=== PATIENT | female | born 1955 | race Caucasian/White ===

== ENCOUNTER 2017-01-03 14:53 | Emergency (ER) | payer MEDICAID, MEDICARE ==
[~2017-01-03] VITALS: Ht 170.2 cm; Wt 98.9 kg
[~2017-01-03 14:53] MED LIST: AGM875T PO; ALDACTONE25 MG PO; AMOX500C2 PO; ASP325T PO; ASP81CT PO; ASP81TEC PO; ASPI-983 PO; ASPI-999 PO; ATR20T PO; ATRV10T PO; BENZ100C18 PO; BSC10SU PR; CARV12.53 PO; CARV3.12 PO; CARV3.122 PO; CARV6.25 PO; CEFU500T PO; CLPD75T PO; CPR500T PO; CRV6.25T PO; CYCL10TA9 PO; DIPH25TA65 PO; DIPH50CA33 PO; DOXY100C42 PO; DPAS20025 PO; DULO20CA PO; DULO60CA58 PO; DULO60CA6 PO; ESCT10T PO; EXEN2PEN SQ; FERR-74 PO; FURO20TA4 PO; FURO40TA4 PO; GBPN300C PO; GLUC1VIA IJ; GLUCOSE GEL 40% PO; HYDR-2856 PO; HYDR-2997 PO; HYDR-34 PO; HYDR-3816 PO; IBP800T PO; INSU100I14 SQ; INSU100I16 SQ; INSU100I23 SQ; INSU100I29 SQ; INSU100V5 SQ; INSU100V6 SQ; Insulin Human Lispro SC; KCL20TCR PO; KRIL1CAP10 PO; L.AC1CAP6 PO; LD5O35 TP; LEVO750T6 PO; LIRA0.6P SQ; LISI10TA2 PO; LISI2.5T PO; LISI2.5T56 PO; LISI5TAB PO; LOPE-134 PO; LORA0.5T PO; MAGN-47 PO; MAGN800O PO; MO133EN RC; MORP-33 PO; MUPI22OI2 TP; NITR-33 PO; NITR-65 PO; NS10S IV; NST15O TOP; NST15PW TOP; NSTR15O TP; OMEP40CA36 PO; ONDA2VIA IV; OXB5T PO; OXYB10TA PO; OXYB5TAB PO; OXYB5TAB9 PO; PANT40SU PO; PANT40VI3 IV; PENT100C5 PO; PHEN200T27 PO; POTA20TA15 PO; PRAV40TA PO; PREG150C PO; PREG225C PO; PREG75CA PO; Pregabalin PO; QUIN5TAB PO; SCR1T1 PO; SENN1TAB76 PO; SODI15OR PO; TRAM50TA2 PO; TRM50T PO; levimer
--- OUTSIDE RECORDS SUMMARY | 2017-01-03 14:59 | XMS REPORT ---
Author Author WESLY NORMAN Organization [facility] Address [address] [place] [address] Care Team Providers Care Link Assembler Name Role Phone WESLY NORMAN Unavailable PROBLEMS Type Condition ICD9-CM Code DOS03-IO Code Onset Dates Condition Status SNOMED Code Problem Amputated left leg Z89.612 Active 861290145 Problem Elevated blood pressure I10 Active 49373882 Problem Cellulitis of left lower limb L03.116 Active 549914837 Problem Noncompliance Z91.19 Active 0775759 Problem Acute cystitis with hematuria N30.01 Active 55514795 Problem High risk medication use Z79.899 Active 934703974 Problem Encounter for Zostavax administration Z23 Active 755710839 Problem Neuropathy G62.9 Active 563022746 Problem Low back pain M54.5 Active 435666879 Problem Diabetes type 2, uncontrolled E11.65 Active 275671258 Problem Hyperlipemia E78.5 Active 41482958 Problem Ischemic cardiomyopathy I25.5 Active 161287923 Problem CAD (coronary artery disease) I25.10 Active 40812450 Problem HTN (hypertension) I10 Active 93343093 Problem Hypertension I10 Active 18566525 Problem Continuous leakage of urine N39.45 Active 183467333 Problem Peripheral arterial disease I73.9 Active 864186881 Problem Cellulitis of right lower extremity L03.115 Active 355724058 ALLERGIES Unknown Allergies SOCIAL HISTORY No smoking Hx information available PLAN OF CARE VITAL SIGNS MEDICATIONS Medication Instructions Dosage Frequency Start Date End Date Duration Status Lortab 10-325 MG Orally 3 times a day 1 tablet as needed for pain 8h 20 Jul Active RESULTS No Results PROCEDURES No Known procedures IMMUNIZATIONS No Known Immunizations
[2017-01-03 15:52] LABS: BASOPHILS # (AUTO) 0.1 10^3/uL (0.0-0.1); BASOPHILS % (AUTO) 1 % (0-10); EOSINOPHILS # (AUTO) 0.3 10^3/uL (0.0-0.3); EOSINOPHILS % (AUTO) 3 % (0-10); LYMPHOCYTES # (AUTO) 1.5 X 10^3 (1.0-4.0); LYMPHOCYTES % (AUTO) 16 % (12-44); MEAN CORPUSCULAR HEMOGLOBIN 28 PG (25-34); MEAN CORPUSCULAR HGB CONC 33 G/DL (32-36); MEAN CORPUSCULAR VOLUME 83 FL (80-99); MEAN PLATELET VOLUME 11.1 FL (7.4-10.4); MONOCYTES # (AUTO) 0.7 X 10^3 (0.0-1.0); MONOCYTES % (AUTO) 8 % (0-12); NEUTROPHILS # (AUTO) 6.6 X 10^3 (1.8-7.8); NEUTROPHILS % (AUTO) 72 % (42-75); PLATELET COUNT 292 10^3/uL (130-400); RED BLOOD COUNT 3.73 10^6/uL (4.35-5.85); RED CELL DISTRIBUTION WIDTH 13.9 % (10.0-14.5); WHITE BLOOD COUNT 9.1 10^3/uL (4.3-11.0)
--- NOTE | 2017-01-03 15:58 | ED General ---
General Chief Complaint: General Problems/Pain Stated Complaint: IRREGULAR LABS Nursing Triage Note: TO ED PER W/C HAD LAB DRAWN AT THE [facility] ON THURSDAY. WAS CALLED TODAY TO COME TO [facility] FOR ADMIT. NO RECORD OF HER BEING A DIRECT ADMIT. Nursing Sepsis Screen: No Definite Risk Source of Information: Patient Exam Limitations: No Limitations History of Present Illness Time Seen by Provider: 15:57 Initial Comments Sent to ER from [facility] in [place] with reports of abnormal labs. She had labs drawn as an outpatient there that were standard labs for screening on 01/01/17. They called her today to report that her blood sugar was over 600 on that lab draw, renal function was poor and sodium was low and advised her to come here. She remained asymptomatic but she states that she has had a lingering cough for several weeks Timing/Duration: 1-2 Days Severity: Moderate Associated Systoms: Denies Symptoms Allergies and Home Medications Allergies Coded Allergies: simvastatin (Unverified Allergy, Unknown, 07/25/14) REACTION SHORTNESS OF AIR, WHEEZE, COUGH Home Medications Aspirin 81 Mg Tablet.dr 81 MG PO DAILY (Reported) Carvedilol 12.5 Mg Tablet 12.5 MG PO BID (Reported) Cefuroxime Axetil 500 Mg Tablet #10 500 MG PO BID Prescribed by: TAYLOR COCHRAN on 11/28/15 1049 Cefuroxime Axetil 500 Mg Tablet #14 500 MG PO BID Prescribed by: LEONARD DEE on 01/03/17 1704 Cyclobenzaprine Hcl 10 Mg Tablet 10 MG PO HS (Reported) Diphenhydramine HCl 25 Mg Tablet 25 MG PO BID PRN PRN ALLERGIES (Reported) Duloxetine Hcl 60 Mg Capsule.dr 60 MG PO HS (Reported) Exenatide Microspheres 2 Mg/0.65 Ml Pen.injctr 2 MG SQ WEEKLY ON THURSDAY ( Reported) Ferrous Sulfate 325 Mg Tablet 325 MG PO DAILY (Reported) Furosemide 40 Mg Tablet 40 MG PO DAILY (Reported) Hydrocodone Bit/Acetaminophen 1 Tab Tablet 1 TAB PO BID PRN PRN PAIN (Reported) Insulin Detemir 100 Unit/1 Ml Insuln.pen 35 UNIT SQ HS (Reported) WILL HOLD IF BLOOD SUGAR IS 100 OR BELOW Insulin Lispro 100 Unit/1 Ml Insuln.pen 10 UNITS SQ TID (Reported) WILL HOLD IF BS BELOW 100 L.acidoph & Paracasei,B.lactis 1 Each Capsule 1 CAP PO DAILY PRN PRN STOMACH HEALTH (Reported) Lidocaine HCl 35 Gm Oint TP TID PRN PRN PAIN (Reported) Lisinopril 10 Mg Tablet 10 MG PO DAILY (Reported) Loperamide HCl 2 Mg Tablet 2 MG PO QID PRN PRN DIARRHEA (Reported) Nystatin/Triamcinolone 15 Gm Oint TP DAILY PRN PRN RASH (Reported) Omeprazole 40 Mg Capsule.dr 40 MG PO DAILY (Reported) Oxybutynin Chloride 5 Mg Tablet 5 MG PO BID (Reported) Pregabalin 150 Mg Capsule 150 MG PO BID (Reported) Pregabalin 75 Mg Capsule 75 MG PO DAILY @ NOON (Reported) Constitutional: see HPINo chills, No fever EENTM: see HPI Respiratory: no symptoms reported Cardiovascular: no symptoms reported Genitourinary: no symptoms reported Musculoskeletal: no symptoms reported Skin: no symptoms reported Psychiatric/Neurological: No Symptoms Reported Hematologic/Lymphatic: No Symptoms Reported Past Husjsmy-Gsavzz-Osinzw Hx Patient Social History Alcohol Use: Denies Use Recreational Drug Use: No Smoking Status: Never a Smoker Recent Foreign Travel: No Contact w/Someone Who Travel: No Recent Infectious Disease Expo: No Recent Hopitalizations: Yes (2004 adn 2009 heart cath.) Immunizations Up To Date Tetanus Booster (TDap): More than 5yrs PED Vaccines UTD: No Date of Pneumonia Vaccine: Jun 26, 2013 Date of Influenza Vaccine: Jul 07, 2015 Surgeries HX Surgeries: Yes (1986 hysterectomy/HERNIA; stents x 2 L BKA) Surgeries: Hysterectomy, Orthopedic Respiratory Hx Respiratory Disorders: Yes (CHF) Respiratory Disorders: Pneumonia, Chronic Bronchitis, COPD Cardiovascular Hx Cardiac Disorders: Yes (CHF PACEMAKER/DIF) Cardiac Disorders: Heart Attack, Hypertension Neurological Hx Neurological Disorders: Yes (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) Reproductive System Hx Reproductive Disorders: Yes (ovarian cancer) Sexually Transmitted Disease: No Genitourinary Hx Genitourinary Disorders: Yes (radiation stenosis) Gastrointestinal Hx Gastrointestinal Disorders: Yes Gastrointestinal Disorders: Irritable Bowel Musculoskeletal Hx Musculoskeletal Disorders: Yes (CERVICAL DISK REPLACEMENT 2006; herniated disc) Musculoskeletal Disorders: Chronic Back Pain Endocrine Hx Endocrine Disorders: Yes Endocrine Disorders: Diabetes, Insulin dep HEENT HX ENT Disorders: Yes (cataract repaired) HEENT Disorders: Cataract Loss of Vision: Denies Hearing Impairment: Denies Cancer Hx Cancer: Yes (UTERINE) Cancer: Cervical, Vaginal Psychosocial Hx Psychiatric Problems: No Integumentary HX Skin/Integumentary Disorder: Yes (cellulitis) Skin/Integumentary Disorders: Recent Skin Changes Blood Transfusions Hx Blood Disorders: No Adverse Reaction to a Blood Tr: No Family Medical History Family Medial History: Alzheimer's disease 19 FATHER Cardiovascular disease 19 FATHER G8 BROTHER Cervical cancer G8 SISTER Colon cancer 19 MOTHER Dementia 19 FATHER Diabetes mellitus 19 MOTHER G8 SISTER FH: skin cancer G8 BROTHER Hypertension 19 FATHER G8 BROTHER Myocardial infarction 19 FATHER Physical Exam Vital Signs Vital Sign - Last 12Hours 01/03/17 15:08 Temp 98.8 Pulse 78 Resp 18 B/P 141/64 O2 Delivery Room Air Capillary Refill : Less Than 3 Seconds General Appearance: No Apparent Distress WD/WN Eyes: Bilateral Eye EOMI, Bilateral Eye Normal Inspection, Bilateral Eye PERRL HEENT: PERRL/EOMI TMs Normal Neck: Full Range of Motion Supple Respiratory: Chest Non Tender Lungs Clear Normal Breath Sounds No Accessory Muscle Use No Respiratory Distress Cardiovascular: Regular Rate, Rhythm Normal Peripheral Pulses Gastrointestinal: Normal Bowel Sounds Non Tender Soft Extremity: Normal Capillary Refill Neurologic/Psychiatric: Alert Oriented x3 No Motor/Sensory Deficits Skin: Normal Color Warm/Dry Progress/Results/Core Measures Results/Orders Lab Results Laboratory Tests Test 01/03/17 15:45 01/03/17 16:22 01/03/17 17:26 Range/Units Alanine Aminotransferase (ALT/SGPT) 16 0-55 U/L Albumin 3.2 3.2-4.5 G/DL Alkaline Phosphatase 198 H 40-136 U/L Anion Gap 11 5-14 MMOL/L Aspartate Amino Transf (AST/SGOT) 15 5-34 U/L BUN/Creatinine Ratio 18 Basophils # (Auto) 0.1 0.0-0.1 10^3/uL Basophils (%) (Auto) 1 0-10 % Blood Urea Nitrogen 30 H 7-18 MG/DL Calcium Level 8.7 8.5-10.1 MG/DL Carbon Dioxide Level 22 21-32 MMOL/L Chloride Level 100 98-107 MMOL/L Creatinine 1.70 H 0.60-1.30 MG/DL Eosinophils # (Auto) 0.3 0.0-0.3 10^3/uL Eosinophils (%) (Auto) 3 0-10 % Estimat Glomerular Filtration Rate 31 Glucose Level 443 *H 70-105 MG/DL Hematocrit 31 L 35-52 % Hemoglobin 10.3 L 11.5-16.0 G/DL Lymphocytes # (Auto) 1.5 1.0-4.0 X 10^3 Lymphocytes (%) (Auto) 16 12-44 % Mean Corpuscular Hemoglobin 28 25-34 PG Mean Corpuscular Hemoglobin Concent 33 32-36 G/DL Mean Corpuscular Volume 83 80-99 FL Mean Platelet Volume 11.1 H 7.4-10.4 FL Monocytes # (Auto) 0.7 0.0-1.0 X 10^3 Monocytes (%) (Auto) 8 0-12 % Neutrophils # (Auto) 6.6 1.8-7.8 X 10^3 Neutrophils (%) (Auto) 72 42-75 % Platelet Count 292 130-400 10^3/uL Potassium Level 5.3 H 3.6-5.0 MMOL/L Red Blood Count 3.73 L 4.35-5.85 10^6/uL Red Cell Distribution Width 13.9 10.0-14.5 % Sodium Level 133 L 135-145 MMOL/L Total Bilirubin 0.3 0.1-1.0 MG/DL Total Protein 7.9 6.4-8.2 G/DL White Blood Count 9.1 4.3-11.0 10^3/uL Urine Bacteria LARGE H /HPF Urine Bilirubin NEGATIVE NEGATIVE Urine Casts NONE /LPF Urine Clarity VERY CLOUDY H Urine Color IZZY H Urine Crystals NONE /LPF Urine Culture Indicated YES Urine Glucose (UA) 3+ H NEGATIVE Urine Ketones NEGATIVE NEGATIVE Urine Leukocyte Esterase 3+ H NEGATIVE Urine Mucus NEGATIVE /LPF Urine Nitrite NEGATIVE NEGATIVE Urine Protein 3+ H NEGATIVE Urine RBC TNTC H /HPF Urine RBC (Auto) 5+ H NEGATIVE Urine Specific [place] 1.020 1.016-1.022 Urine Squamous Epithelial Cells NONE /HPF Urine Urobilinogen NORMAL NORMAL MG/DL Urine WBC TNTC H /HPF Urine pH 5 5-9 Glucometer 325 H 70-110 MG/DL My Orders Orders-LEONARD DEE DATABASE TECHNICIAN Cbc With Automated Diff (01/03/17 15:37) Comprehensive Metabolic Panel (01/03/17 15:37) Ua Culture If Indicated (01/03/17 15:37) Saline Lock/Iv-Start (01/03/17 15:37) Ns Iv 1000 Ml (Sodium Chloride 0.9%) (01/03/17 16:00) Accucheck Stat ONCE (01/03/17 15:54) Chest Pa/Lat (2 View) (01/03/17 15:54) Insulin (Regular) Human (Humulin R (Per (01/03/17 16:30) Urine Culture (01/03/17 16:22) Ceftriaxone Injection (Rocephin Injectio (01/03/17 17:15) Medications Given in ED Current Medications Medications Dose Ordered Sig/Julianne Route Start Time Stop Time Status Last Admin Dose Admin Ceftriaxone Sodium/Sodium Chloride 50 ml @ 100 mls/hr ONCE ONCE IV 01/03/17 17:15 01/03/17 17:44 01/03/17 17:15 100 MLS/HR Insulin Human Regular 10 unit 10 unit ONCE ONCE IV 01/03/17 16:30 01/03/17 16:31 DC 01/03/17 16:36 10 UNIT Vital Signs/I&O Vital Sign - Last 12Hours 01/03/17 15:08 Temp 98.8 Pulse 78 Resp 18 B/P 141/64 O2 Delivery Room Air Blood Pressure Mean: 89 Diagnostic Imaging Diagonstic Imaging: Xray Plain Films/CT/US/NM/MRI: chest Comments NAME: HUDSON GUO [facility] REC#: [id number] PT STATUS: REG ER : 1955 PHYSICIAN: LEONARD DEE APRN ADMIT DATE: 01/03/17/ER Draft Date of Exam:01/03/17 CHEST PA/LAT (2 VIEW) INDICATION: Abnormal lab values. Pacemaker. TECHNIQUE: Two view chest, 4:19 p.m. CORRELATION STUDY: 11/27/2015. FINDINGS: A right-sided unipolar pacemaker is unchanged with tip near the cardiac apex. Stable cardiac enlargement. There is a metallic safety pin which appears to be anterior on the lateral projection. Vasculature within normal limits. The lungs are clear with no consolidating infiltrate. There is no significant pleural effusion or pneumothorax. Multiple clips in the left upper quadrant epigastric region. Degenerative changes of the thoracic spine. IMPRESSION: Cardiac enlargement without failure. Dictated on workstation # [id number] Dict: 01/03/17 1610 Trans: 01/03/17 1620 [facility] [id number] Interpreted by: KEVIN MAURER DO Electronically signed by: Departure Impression Impression: Primary Impression: hyperglycemia without acidosis Additional Impressions: Acute renal insufficiency Urinary tract infection Disposition: HOME, SELF-CARE Condition: Stable Departure-Patient Inst. Decision time for Depature: 16:36 Referrals: [facility] (PCP) Primary Care Physician WESLY NORMAN (Family) Primary Care Physician Patient Instructions: DIABETES, Dehydration Add. Discharge Instructions: 1. Drink more fluids than usual 2. Check your blood sugar several times daily and use your insulin to keep this under control. Follow-up with your doctor on Thursday 3. Antibiotics as directed for your UTI All discharge instructions reviewed with patient and/or family. Voiced understanding. Scripts Cefuroxime Axetil (Cefuroxime)500 Mg [id number] Mg PO BID #14 TAB Prov:LEONARD DEE APRN 01/03/17 LEONARD DEE APRN Jan 03, 2017 15:58
[2017-01-03] MEDS ORDERED: NS IV 1000 ML 1,000 ML IV SCH (16:00)
[2017-01-03 16:15] LABS: ALBUMIN 3.2 G/DL (3.2-4.5); BILIRUBIN,TOTAL 0.3 MG/DL (0.1-1.0); CALCIUM 8.7 MG/DL (8.5-10.1); CREATININE SERUM 1.7 MG/DL (0.60-1.30); POTASSIUM 5.3 MMOL/L (3.6-5.0); TOTAL PROTEIN 7.9 G/DL (6.4-8.2)
--- NOTE | 2017-01-03 16:20 | Diagnostic Imaging Report ---
INDICATION: Abnormal lab values. Pacemaker. TECHNIQUE: Two view chest, 4:19 p.m. CORRELATION STUDY: 11/27/2015. FINDINGS: A right-sided unipolar pacemaker is unchanged with tip near the cardiac apex. Stable cardiac enlargement. There is a metallic safety pin which appears to be anterior on the lateral projection. Vasculature within normal limits. The lungs are clear with no consolidating infiltrate. There is no significant pleural effusion or pneumothorax. Multiple clips in the left upper quadrant epigastric region. Degenerative changes of the thoracic spine. IMPRESSION: Cardiac enlargement without failure. Dictated by: Dictated on workstation # [id number]
[2017-01-03] MEDS ORDERED: inSUlin (REGULAR) HUMAN 1 UNIT/0.01 ML (CHARGE PER UNIT) IV ONE (16:30)
[2017-01-03 16:37] LABS: BILIRUBIN,URINE NEGATIVE (NEGATIVE); KETONES,URINE NEGATIVE (NEGATIVE); LEUKOCYTE ESTERASE ,URINE 3+ (NEGATIVE); NITRITE,URINE NEGATIVE (NEGATIVE); PH,URINE 5 (5-9); PROTEIN,URINE 3+ (NEGATIVE); UROBILINOGEN,URINE NORMAL (NORMAL)
[2017-01-03 16:59] LABS: WBC,URINE TNTC /HPF
[2017-01-03] MEDS ORDERED: CEFU500T63 PO (17:04)
[2017-01-03] MEDS ORDERED: cefTRIAXone INJECTION 1,000 MG in NS (IVPB) 50 ML IV ONE (17:15)
[2017-01-03 18:04] VITALS: BP 128/63
== END 2017-01-03 18:03 | disposition home or self-care (01) ==
LOC: EDUNIT# 14:53 → ER 14:54
DX: E11.65 Type 2 diabetes mellitus with hyperglycemia (principal); N28.9 Disorder of kidney and ureter, unspecified; N39.0 Urinary tract infection, site not specified; I10 Essential (primary) hypertension; J44.9 Chronic obstructive pulmonary disease, unspecified; Z79.82 Long term (current) use of aspirin; Z79.4 Long term (current) use of insulin; Z79.899 Other long term (current) drug therapy; Z95.0 Presence of cardiac pacemaker
CPT/HCPCS: 36415; 71020; 80053; 81000; 82962; 85025; 87077; 87088; 87186; 96361; 96365; 96375

== ENCOUNTER → 2017-05-13 | Outpatient (CLI) | payer MEDICARE ==
[~2017-05-13] MED LIST changes: +CEFU500T63 PO
[2017-05-13 18:37] LABS: BILIRUBIN,URINE NEGATIVE (NEGATIVE); KETONES,URINE NEGATIVE (NEGATIVE); LEUKOCYTE ESTERASE ,URINE 3+ (NEGATIVE); NITRITE,URINE POSITIVE (NEGATIVE); PH,URINE 6.5 (5-9); PROTEIN,URINE 3+ (NEGATIVE); UROBILINOGEN,URINE NORMAL (NORMAL)
[2017-05-13 18:44] LABS: WBC,URINE >100 /HPF
== END ==
LOC: HH 15:30
PROVIDERS: ATTEND Nurse Practitioner Family
DX: R39.9 Unspecified symptoms and signs involving the genitourinary system (principal)
CPT/HCPCS: 81000; 87088; 87186

== ENCOUNTER → 2017-05-15 | Outpatient (CLI) | payer MEDICARE ==
[2017-05-15 15:26] LABS: RED BLOOD COUNT 3.59 10^6/uL (4.35-5.85); RED CELL DISTRIBUTION WIDTH 15.4 % (10.0-14.5); WHITE BLOOD COUNT 10.6 10^3/uL (4.3-11.0)
[2017-05-15 15:43] LABS: ALBUMIN 3.1 GM/DL (3.2-4.5); CALCIUM 8.7 MG/DL (8.5-10.1); CREATININE SERUM 1.81 MG/DL (0.60-1.30); PHOSPHORUS 3.9 MG/DL (2.3-4.7)
== END ==
LOC: HH 15:21
PROVIDERS: ATTEND Nurse Practitioner Family
DX: N39.0 Urinary tract infection, site not specified (principal)
CPT/HCPCS: 80069; 85027

== ENCOUNTER 2017-05-18 15:56 | Emergency (ER) | payer MEDICARE ==
[~2017-05-18] VITALS: Ht 170.2 cm; Wt 99.0 kg
[2017-05-18 18:08] LABS: BILIRUBIN,URINE NEGATIVE (NEGATIVE); KETONES,URINE NEGATIVE (NEGATIVE); LEUKOCYTE ESTERASE ,URINE 3+ (NEGATIVE); NITRITE,URINE NEGATIVE (NEGATIVE); PH,URINE 5 (5-9); PROTEIN,URINE 4+ (NEGATIVE); UROBILINOGEN,URINE NORMAL (NORMAL)
[2017-05-18 18:10] LABS: WBC,URINE TNTC /HPF
--- NOTE | 2017-05-18 18:58 | ED GU-Female ---
General Chief Complaint: -Female Stated Complaint: UTI/ANTIBIOTICS NOT WORKING Nursing Triage Note: pt was sent from [facility] for urine culture results and antibiotic therapy. Nursing Sepsis Screen: No Definite Risk Source: patient Exam Limitations: no limitations History of Present Illness Time seen by provider: 18:57 Initial Comments 61-year-old female patient presents to the emergency department by [facility] for urine culture results and IV antibiotics. States she was sent for PICC line placement as well as consult with Dr. zachary wiggins for possible urostomy. States she was diagnosed last week with a UTI and put on cipro. Denies fever, chills, abdominal pain. Timing/Duration: week Activities at Onset: none Prior Genitourinary Problems: similar symptoms Modifying Factors: Worsens With Other (no improvement with ciprofloxacin) Allergies and Home Medications Allergies Coded Allergies: simvastatin (Unverified Allergy, Unknown, 07/25/14) REACTION SHORTNESS OF AIR, WHEEZE, COUGH Home Medications Aspirin 81 Mg Tablet.dr, 81 MG PO DAILY, (Reported) Carvedilol 12.5 Mg Tablet, 12.5 MG PO BID, (Reported) Cefuroxime Axetil 500 Mg Tablet, 500 MG PO BID, #10 Ref 0 Prescribed by: TAYLOR COCHRAN on 11/28/15 1049 Cefuroxime Axetil 500 Mg Tablet, 500 MG PO BID, #14 Prescribed by: LEONARD DEE on 01/03/17 1704 Cyclobenzaprine Hcl 10 Mg Tablet, 10 MG PO HS, (Reported) Diphenhydramine HCl 25 Mg Tablet, 25 MG PO BID PRN for ALLERGIES, (Reported) Duloxetine Hcl 60 Mg Capsule.dr, 60 MG PO HS, (Reported) Exenatide Microspheres 2 Mg/0.65 Ml Pen.injctr, 2 MG SQ WEEKLY ON THURSDAY, ( Reported) Ferrous Sulfate 325 Mg Tablet, 325 MG PO DAILY, (Reported) Furosemide 40 Mg Tablet, 40 MG PO DAILY, (Reported) Hydrocodone Bit/Acetaminophen 1 Tab Tablet, 1 TAB PO BID PRN for PAIN, (Reported ) Insulin Detemir 100 Unit/1 Ml Insuln.pen, 35 UNIT SQ HS, (Reported) WILL HOLD IF BLOOD SUGAR IS 100 OR BELOW Insulin Lispro 100 Unit/1 Ml Insuln.pen, 10 UNITS SQ TID, (Reported) WILL HOLD IF BS BELOW 100 L.acidoph & Paracasei,B.lactis 1 Each Capsule, 1 CAP PO DAILY PRN for STOMACH HEALTH, (Reported) Lidocaine HCl 35 Gm Oint, TP TID PRN for PAIN, (Reported) Lisinopril 10 Mg Tablet, 10 MG PO DAILY, (Reported) Loperamide HCl 2 Mg Tablet, 2 MG PO QID PRN for DIARRHEA, (Reported) Nystatin/Triamcinolone 15 Gm Oint, TP DAILY PRN for RASH, (Reported) Omeprazole 40 Mg Capsule.dr, 40 MG PO DAILY, (Reported) Oxybutynin Chloride 5 Mg Tablet, 5 MG PO BID, (Reported) Pregabalin 150 Mg Capsule, 150 MG PO BID, (Reported) Pregabalin 75 Mg Capsule, 75 MG PO DAILY @ NOON, (Reported) Constitutional: No chills, No fever, No malaise Respiratory: no symptoms reported Cardiovascular: no symptoms reported Gastrointestinal: No abdominal pain, No constipation, No diarrhea, No nausea, No vomiting Genitourinary: see HPI, denies dysuria, denies frequency, denies flank pain, denies pain Musculoskeletal: no symptoms reported Psychiatric/Neurological: No Symptoms Reported All Other Systemes Reviewed Negative Unless Noted: Yes (Negative excepted noted.) Past Mxaekfm-Umhirj-Lkxdau Hx Patient Social History Alcohol Use: Denies Use Recreational Drug Use: No Smoking Status: Never a Smoker Recent Foreign Travel: No Contact w/Someone Who Travel: No Recent Infectious Disease Expo: No Recent Hopitalizations: Yes (2004 adn 2009 heart cath.) Immunizations Up To Date Tetanus Booster (TDap): More than 5yrs PED Vaccines UTD: No Date of Pneumonia Vaccine: Jun 26, 2013 Date of Influenza Vaccine: Jul 07, 2015 Surgeries HX Surgeries: Yes (1986 hysterectomy/HERNIA; stents x 2 L BKA) Surgeries: Hysterectomy, Orthopedic Respiratory Hx Respiratory Disorders: Yes (CHF) Respiratory Disorders: Pneumonia, Chronic Bronchitis, COPD Cardiovascular Hx Cardiac Disorders: Yes (CHF PACEMAKER/DIF) Cardiac Disorders: Heart Attack, Hypertension Neurological Hx Neurological Disorders: Yes (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) Reproductive System Hx Reproductive Disorders: Yes (ovarian cancer) Sexually Transmitted Disease: No Genitourinary Hx Genitourinary Disorders: Yes (radiation stenosis) Gastrointestinal Hx Gastrointestinal Disorders: Yes Gastrointestinal Disorders: Irritable Bowel Musculoskeletal Hx Musculoskeletal Disorders: Yes (CERVICAL DISK REPLACEMENT 2006; herniated disc) Musculoskeletal Disorders: Chronic Back Pain Endocrine Hx Endocrine Disorders: Yes Endocrine Disorders: Diabetes, Insulin dep HEENT HX ENT Disorders: Yes (cataract repaired) HEENT Disorders: Cataract Loss of Vision: Denies Hearing Impairment: Denies Cancer Hx Cancer: Yes (UTERINE) Cancer: Cervical, Vaginal Psychosocial Hx Psychiatric Problems: No Integumentary HX Skin/Integumentary Disorder: Yes (cellulitis) Skin/Integumentary Disorders: Recent Skin Changes Blood Transfusions Hx Blood Disorders: No Adverse Reaction to a Blood Tr: No Reviewed Nursing Assessment Reviewed/Agree w Nursing PMH: Yes Family Medical History Significant Family History: No Pertinent Family Hx Family Medial History: Alzheimer's disease 19 FATHER Cardiovascular disease 19 FATHER G8 BROTHER Cervical cancer G8 SISTER Colon cancer 19 MOTHER Dementia 19 FATHER Diabetes mellitus 19 MOTHER G8 SISTER FH: skin cancer G8 BROTHER Hypertension 19 FATHER G8 BROTHER Myocardial infarction 19 FATHER Physical Exam Vital Signs Vital Sign - Last 12Hours 05/18/17 18:27 Temp 98.0 Pulse 74 Resp 18 B/P (MAP) 128/57 Pulse Ox 96 Capillary Refill : Less Than 3 Seconds General Appearance: WD/WN, no apparent distress HEENT: PERRL/EOMI, pharynx normal Neck: supple, normal inspection Cardiovascular: regular rate, rhythm, no murmur Respiratory: lungs clear, normal breath sounds, no respiratory distress Gastrointestinal: normal bowel sounds, non tender, soft, No distended Extremities: normal capillary refill Neurologic/Psychiatric: alert, normal mood/affect, oriented x 3 Skin: normal color, warm/dry Progress/Results/Core Measures Results/Orders Lab Results Laboratory Tests Test 05/18/17 18:01 Range/Units Urine Color RED H Urine Clarity VERY CLOUDY H Urine pH 5 5-9 Urine Specific [place] 1.015 L 1.016-1.022 Urine Protein 4+ NEGATIVE Urine Glucose (UA) NEGATIVE NEGATIVE Urine Ketones NEGATIVE NEGATIVE Urine Nitrite NEGATIVE NEGATIVE Urine Bilirubin NEGATIVE NEGATIVE Urine Urobilinogen NORMAL NORMAL MG/DL Urine Leukocyte Esterase 3+ H NEGATIVE Urine RBC (Auto) 5+ H NEGATIVE Urine RBC TNTC H /HPF Urine WBC TNTC H /HPF Urine Crystals NONE /LPF Urine Bacteria LARGE H /HPF Urine Casts NONE /LPF Urine Mucus NEGATIVE /LPF Urine Culture Indicated YES My Orders Orders - TRAY AGUILAR PA Ua Culture If Indicated (05/18/17 17:27) Urine Culture (05/18/17 18:01) Meropenem (Merrem 1000 Mg) (05/18/17 19:00) Medications Given in ED Current Medications Medications Dose Ordered Sig/Julianne Route Start Time Stop Time Status Last Admin Dose Admin Meropenem 1000 mg/ Sodium Chloride 100 ml @ 200 mls/hr ONCE ONCE IV 05/18/17 19:00 05/18/17 19:29 DC 05/18/17 19:25 200 MLS/HR Vital Signs/I&O Vital Sign - Last 12Hours 05/18/17 18:27 Temp 98.0 Pulse 74 Resp 18 B/P (MAP) 128/57 Pulse Ox 96 Blood Pressure Mean: 80 Departure Communication Progress Notes Patient case discussed with Dr. Cowart. Recommends [facility] to home with orders for outpatient PICC line placement tomorrow, outpatient consult with Dr. Mcintosh, and outpatient meropenem treatment. Laboratory findings and recommendations by Dr. Cowart were discussed with the patient. Patient agrees with plan of care. Impression Impression: Primary Impression: Urinary tract infection Qualified Codes: N30.01 - Acute cystitis with hematuria Disposition: HOME, SELF-CARE Condition: Improved Departure-Patient Inst. Decision time for Depature: 19:50 Referrals: [facility] (PCP) Primary Care Physician WESLY NORMAN (Family) Primary Care Physician Patient Instructions: Urinary Tract Infection, Adult (DC) Add. Discharge Instructions: All discharge instructions reviewed with patient and/or family. Voiced understanding. Meropenem 1 g IV every 12 hours 7 days. Schedule patient for PICC line placement as an outpatient tomorrow. Call scheduling first thing in the morning for appointment time. Continue usual diet, orders, and medications. Follow-up with Dr. Mcintosh as an outpatient for recheck and possible need of urostomy. Follow-up with [facility] this week for recheck. Return to the emergency department for worsened symptoms or any other concerns. TRAY AGUILAR May 18, 2017 18:57
[2017-05-18] MEDS ORDERED: MEROPENEM 1,000 MG in NS (IVPB) 100 ML IV ONE (19:00)
[2017-05-18 20:48] VITALS: BP 129/57
== END 2017-05-18 21:29 | disposition home or self-care (01) ==
LOC: EDUNIT# 15:56 → ER 15:58
DX: N39.0 Urinary tract infection, site not specified (principal); J44.9 Chronic obstructive pulmonary disease, unspecified; I25.2 Old myocardial infarction; I11.0 Hypertensive heart disease with heart failure; I50.9 Heart failure, unspecified; E11.40 Type 2 diabetes mellitus with diabetic neuropathy, unspecified; Z79.82 Long term (current) use of aspirin; Z79.4 Long term (current) use of insulin; Z90.710 Acquired absence of both cervix and uterus; Z95.0 Presence of cardiac pacemaker; Z85.43 Personal history of malignant neoplasm of ovary; Z85.42 Personal history of malignant neoplasm of other parts of uterus; Z85.41 Personal history of malignant neoplasm of cervix uteri; Z85.44 Personal history of malignant neoplasm of other female genital organs; Z96.698 Presence of other orthopedic joint implants; Z95.5 Presence of coronary angioplasty implant and graft; Z89.512 Acquired absence of left leg below knee; Z98.890 Other specified postprocedural states
CPT/HCPCS: 81000; 87088; 96365

== ENCOUNTER → 2017-05-19 | Outpatient (CLI) | payer MEDICARE ==
[~2017-05-19] VITALS: Ht 170.2 cm; Wt 96.3 kg
[~2017-05-19] MED LIST changes: +MEROPENEM 1 GM/NS 100 ML IVPB IV NR
[2017-05-19 13:20] VITALS: BP 117/59
--- NOTE | 2017-05-19 13:31 | Diagnostic Imaging Report ---
INDICATION: PICC line placement. EXAMINATION: Frontal chest obtained at 01:09 p.m. and compared with 01/03/2017. FINDINGS: There is cardiomegaly again noted. Pacemaker device is unchanged. There is no focal infiltrate or pneumothorax or pleural fluid. There is a new right-sided PICC line with tip overlying the mid SVC. IMPRESSION: New right-sided PICC line, tip overlies mid SVC. Cardiomegaly noted. No acute infiltrate. Dictated by: Dictated on workstation # [id number]
== END ==
LOC: SDC 11:32
PROVIDERS: ATTEND Physician Assistant
DX: N39.0 Urinary tract infection, site not specified (principal); I87.2 Venous insufficiency (chronic) (peripheral)
CPT/HCPCS: 36569; 71010; 76937; 96365

== ENCOUNTER → 2017-06-02 | Outpatient (CLI) | payer MEDICARE ==
[~2017-06-02] MED LIST changes: -MEROPENEM 1 GM/NS 100 ML IVPB IV NR
[2017-06-02 13:27] LABS: BILIRUBIN,URINE NEGATIVE (NEGATIVE); KETONES,URINE NEGATIVE (NEGATIVE); LEUKOCYTE ESTERASE ,URINE 3+ (NEGATIVE); NITRITE,URINE NEGATIVE (NEGATIVE); PH,URINE 6 (5-9); PROTEIN,URINE 3+ (NEGATIVE); UROBILINOGEN,URINE NORMAL (NORMAL)
[2017-06-02 13:39] LABS: WBC,URINE TNTC /HPF
== END ==
LOC: HH 13:21
PROVIDERS: ATTEND Pediatrics
DX: N39.0 Urinary tract infection, site not specified (principal)
CPT/HCPCS: 81000; 87077; 87088; 87186